=== PATIENT | female | born 1985 ===

== ENCOUNTER 2016-11-24 09:23 | Outpatient (CLI) | payer BC ==
--- NOTE | 2016-11-24 16:28 | Cat Scan Report ---
CT ABDOMEN AND PELVIS WITH CONTRAST: 11/24/16 09:23:00 CLINICAL: Flank pain and right upper quadrant abdominal pain. COMPARISON: None. TECHNIQUE: Volumetric acquisition and 1.25 millimeter scan reconstructions after the uneventful intravenous injection of 100 cc Omnipaque 300. Consent was obtained prior to the administration of contrast. Oral contrast was also given. FINDINGS: Abdomen: Clear lung bases. Normal liver, bile ducts and gallbladder.Normal liver, bile ducts and gallbladder. Normal stomach, duodenum, pancreas and spleen. Normal adrenal glands and kidneys. The renal collection systems and ureters are nondilated. No urinary calculus, mass or cyst. Normal aorta and inferior vena cava. Normal small bowel.Normal ascending, transverse and descending colon. An appendix is not identified. No mass, lymphadenopathy or ascites.No pneumoperitoneum. Pelvis: Normal urinary bladder.The uterus is tiny and measures 6.8 x 2.4 x 4.5 cm. Ovaries are slitlike. No adnexal mass or free fluid. Normal rectum and sigmoid colon. Bone windows demonstrate no bone lesion. IMPRESSION:1. Normal abdomen. 2. Uterine and ovarian hypoplasia. 3. No explanation for pain.
== END 2016-11-24 09:24 | disposition home or self-care (01) ==
LOC: SPVIMAG 09:23
PROVIDERS: ATTEND Internal Medicine Gastroenterology
DX: Q51.811 Hypoplasia of uterus (principal); Q50.39 Other congenital malformation of ovary
CPT/HCPCS: 74177; Q9967